=== PATIENT | male | born 1950 | race African-American/Black ===

== ENCOUNTER 2023-08-27 12:01 | Emergency (ER) | payer MEDICARE, BC ==
[~2023-08-27] VITALS: Ht 185.4 cm; Wt 64.0 kg
[2023-08-27 12:03] VITALS: TEMP 98.1; O2SAT 100
[2023-08-27 13:29] VITALS: BP 145/86; PULSE 87; RESP 16
[2023-08-27] MEDS: MORPHINE SULFATE 4 MG/ML INJ (FOR IV/IM USE) IM STA (13:29)
== END 2023-08-27 14:10 | disposition left against medical advice (07) ==
LOC: ER 12:01
DX: R10.9 Unspecified abdominal pain (principal)
CPT/HCPCS: 99283; 96372; J2270